=== PATIENT | male | born 1980 | race Two or more races ===

== ENCOUNTER 2018-01-27 10:05 | Outpatient (CLI) | payer OTHER | END 2018-01-27 16:53 | disposition home or self-care (01) | LOC: RAD 10:05 | DX: M25.552 Pain in left hip (principal) ==

== ENCOUNTER 2020-05-10 04:29 | Emergency (ER) | payer OTHER ==
[~2020-05-10] VITALS: Ht 180.3 cm; Wt 68.0 kg
== END 2020-05-10 12:22 | disposition home or self-care (01) ==
LOC: ER 04:29
DX: A09 Infectious gastroenteritis and colitis, unspecified (principal); Z03.818 Encounter for observation for suspected exposure to other biological agents ruled out